=== PATIENT | female | born 1995 | race Caucasian/White ===

== ENCOUNTER 2021-11-15 09:41 | Outpatient (CLI) | payer OTHER, SELFPAY ==
[2021-11-16 20:11] LABS: Rapid Plasma Reagin (RPR) Non Reactive (Non Reactive)
== END 2021-11-15 09:42 | disposition home or self-care (01) ==
LOC: NFLDREF 09:42
PROVIDERS: Visit Provider Advanced Practice Midwife
DX: Z34.93 Encounter for supervision of normal pregnancy, unspecified, third trimester (principal); Z3A.28 28 weeks gestation of pregnancy
CPT/HCPCS: 86592

== ENCOUNTER 2021-12-14 12:08 | Outpatient (CLI) | payer OTHER, SELFPAY ==
--- NOTE | 2021-12-14 12:15 | CRLHL7_ITS ---
For Patients: As a result of the Century Cures Act, medical imaging exams and procedure reports are released immediately into your electronic medical record. You may view this report before your referring provider. If you have questions, please contact your health care provider. INDICATION: Third trimester scan, evaluate growth. Size less than dates COMPARISON: 09/20/2021 TECHNIQUE: Real time harrison scale imaging of the fetus was performed. FINDINGS: Sonographic imaging demonstrates a single living intrauterine gestation. Fetus demonstrates a regular cardiac rate of 145 beats per minute. Fetus has a vertex position. The placenta lies posteriorly. Amniotic fluid volume appears normal and there is a single deepest vertical pocket: 3.8 cm. The estimated weight is 2045gm which lies at the 60th %. On the prior OB ultrasound exam dated 09/20/2021 the estimated weight was at the 59th%. The HC/AC ratio measures 1.05 range (0.96-1.11). BPD 62nd percentile. HC 62nd percentile. AC 78th percentile. FL 23rd percentile. IMPRESSION: Sonographic gestational age 32 weeks 6 days and sonographic due date 02/02/2022. Good correlation with dates. Estimated weight 60th percentile. Abdominal circumference 78th percentile. Dictated by Eliezer Graf MD @ 12/14/2021 1:10:22 PM (Electronically Signed)
== END 2021-12-14 12:09 | disposition home or self-care (01) ==
LOC: US 12:09
PROVIDERS: Visit Provider Advanced Practice Midwife
DX: O36.5930 Maternal care for other known or suspected poor fetal growth, third trimester, not applicable or unspecified (principal); Z3A.32 32 weeks gestation of pregnancy
CPT/HCPCS: 76816

== ENCOUNTER 2022-01-10 09:12 | Outpatient (CLI) | payer OTHER, SELFPAY ==
[2022-01-11 08:44] LABS: Strep B DNA Probe Negative (Negative)
== END 2022-01-10 09:13 | disposition home or self-care (01) ==
LOC: NFLDREF 09:12
PROVIDERS: Visit Provider Advanced Practice Midwife
DX: Z34.93 Encounter for supervision of normal pregnancy, unspecified, third trimester (principal)
CPT/HCPCS: 87081; 87653

== ENCOUNTER 2022-02-13 16:04 | Inpatient (IN) | payer OTHER, SELFPAY ==
[2022-02-13 16:25] VITALS: BP 132/79; PULSE 102; RESP 18; TEMP 36.5
[2022-02-13 16:31] VITALS: BMI 33.3
--- NOTE | 2022-02-13 16:45 | P.LDBA_ITS ---
Subjective History of Present Illness Time Seen by Provider: 16:46 Date Seen: 02/13/22 Narrative: Juanita is being admitted to Labor and Delivery for IOL r/t postdates and anxiety about going past 41 weeks gestation. She is a 26 year old at 40 6/7 weeks gestation. Her full history and physical was dictated by Arelis Hallman CNM on 01/17/22. Please see this for details. She is an RN in L&D here. She is supported by her Yovani. Juanita would prefer an unmedicated labor and waterbirth if possible. Currently she is relaxed, resting comfortably in bed with Yovani supportive at bedside. OB Problem List: 1. Asthma as a child, last attack age 13 2. Hx of anorexia and bulimia. Counseling, done about 3 years ago. Blind weights if desired. Has counselor she can reach out to if needed. Consider growth u/s in 3rd trimester: 12/14/21: EFW 60%ile 3. Kidney stones. Had stent placed, has upcoming surgeries to remove stones Stent removed on September 30 OB - H&P: Exam Physical Exam: Vital signs: Pulse BP 102 H 132/79 02/13/22 16:25 02/13/22 16:25 Constitutional: Constitutional: no acute distress and average body habitus Routine HEENT Exam: Head: Present normocephalic Eye: Present normal appearance Routine Neck Exam: Neck: Present full ROM Routine Respiratory Exam: Respiratory: Present CTA bilaterally Routine Cardiovascular Exam: Cardiovascular: RRR Routine Abdominal Exam: Comments: Gravid Routine Exam: External: Present normal external exam Detailed Labor and Delivery Exam: Patient Gravid: yes Tachysystole: No Comments: No contractions Fetus (Single): Heart Rate Baseline: 135 Monitor Accelerations: Present Monitor Decelerations: None Long-Term Variability: Average (6-10) Routine Extremities Exam: Extremities: Present full ROM Routine Back/Spine/Pelvis Exam: Back/Spine: full ROM Routine Skin Exam: Present intact, dry and warm; Absent rash Routine Neurological Exam: Present alert and oriented X3 Detailed Neurological Exam: Coma Scale: Eye Opening: Spontaneous (4) Verbal Response: Orientated (5) Routine Psychiatric Exam: Present normal affect, normal thought process, cooperative, good insight and good judgment OB - Problem Based A/P Additional Plan (1) Supervision of normal first : Status: Acute (2) History of eating disorder: Status: Acute Plan ASSESSMENT:? 26 at 40 6/7 weeks gestation? Labor type: IOL, Not in labor? Category 1 FHR pattern.?? GBS positive? PLAN:? 1. Routine intrapartum cares as ordered. Continue with expectant management? 2. Monitoring per cytotec protocol 3. Planning unmedicated . Desires water . Consent signed. Hep C negative. Candidate for analgesia of choice.?? 4. Patient encouraged to reposition and ambulate to promote physiologic labor and .? 6. Anticipate ? ?
[2022-02-13] MEDS: miSOPROStoL 25 MCG/0.25 TABLET VAGINAL ×3 (17:18→23:13)
[2022-02-13 17:49] LABS: SARS PCR* Negative SARS-CoV-2 (Negative)
[2022-02-13 19:11] VITALS: BP 120/69; PULSE 68
--- NOTE | 2022-02-13 21:24 | W.PM.LDBA ---
Subjective History of Present Illness Time Seen by Provider: 21:25 Date Seen: 02/13/22 Narrative: Patient is being admitted to Labor and Delivery for IOL for dates. She is a 26 year old at 40.6 weeks gestation. Her full history and physical was dictated by Arelis Hallman on 01/17/22. Please see this for details. Her partner is at bedside for support. H & P done 01/17 by Arelis Hallman 1. Asthma as a child, last attack age 13 2. Hx of anorexia and bulimia. Counseling, done about 3 years ago. Blind weights if desired. Has counselor she can reach out to if needed. Consider growth u/s in 3rd trimester: 12/14/21: EFW 60%ile 3. Kidney stones. Had stent placed, has upcoming surgeries to remove stones Stent removed on September 30 OB - H&P: Exam Physical Exam: Vital signs: Temp Pulse Resp BP 97.7 F 68 18 120/69 02/13/22 16:25 02/13/22 19:11 02/13/22 16:25 02/13/22 19:11 Constitutional: Constitutional: no acute distress and cooperative Routine HEENT Exam: Head: Present normocephalic Routine Neck Exam: Neck: Present full ROM Routine Respiratory Exam: Respiratory: Present CTA bilaterally Routine Cardiovascular Exam: Cardiovascular: RRR Routine Abdominal Exam: Abdominal: Present soft; Absent tenderness Comments: Gravid Detailed Labor and Delivery Exam: Patient Gravid: yes Dilation (cm): 1 (per RN) Effacement (%): 60 (per RN 1/60/-2) Contraction frequency (min): 2 (none on admit, now Q 1-2 mins) Tachysystole: No Contraction intensity: Mild Fetus (Single): Heart Rate Baseline: 150 Monitor Accelerations: Present Monitor Decelerations: None Assisted Variability: Average (6-10) (Moderate) Routine Extremities Exam: Extremities: Present full ROM; Absent pedal edema Routine Back/Spine/Pelvis Exam: Back/Spine: full ROM Routine Skin Exam: Present intact, dry and warm Routine Neurological Exam: Present alert and oriented X3 Routine Psychiatric Exam: Present normal affect and normal thought process OB - Problem Based A/P Additional Plan (1) Supervision of normal first : Status: Acute (2) History of eating disorder: Status: Acute Plan at 40.6 weeks GBS negative IOL for dates complicated by kidney stones, resolved Admit to L & D Decision made to proceed with cytotec IOL. Pt candidate for analgesia of choice. Planning unmedicated Desires waterbirth. Hep C negative, consent signed. Intermittent or continuous monitoring per cytotec protocol at this time. Anticipate progress to NVD. Delivery/Labor/Induction Plan Plan: induction Induction method: per misoprostol protocol
[2022-02-13 23:46] VITALS: BP 123/65; PULSE 53; RESP 15; TEMP 36.7
[2022-02-14] VITALS (19 sets, daily range): BP systolic 100–140; BP diastolic 60–88; PULSE 55–100; RESP 15–20; TEMP 36.4–37.1
[2022-02-14] MEDS: miSOPROStoL 25 MCG/0.25 TABLET VAGINAL (05:14)
--- NOTE | 2022-02-14 10:55 | PM.OBPNL ---
Subjective Date Seen: 02/14/22 Objective Exam: She is now starting to feel a little more uncomfortable with contractions. Frequent position changes including walking, birthing ball, squatting, labor circuit, hands and knees, and hydrotherapy for relaxation. Received 4 doses of Cytotec overnight and is now tessa too frequently to receive a dose at this time. She is making slight change and has a bulging bag of water on exam. Will continue to labor and monitor. Consider another dose of Cytotec if contraction frequency decreases. Vital Signs: Last Vital Signs Temp 97.8 F 02/14/22 09:17 Pulse 64 02/14/22 10:55 Resp 16 02/14/22 07:18 BP 127/75 02/14/22 10:55 Pelvic Exam Dilation (cm): 2-3 Effacement (%): 80 Station: -1 Contractions Monitor mode: External Contraction Frequency: 1-3 Contraction pattern: Regular Contraction intensity: Moderate Assessment Assessment: induction ongoing and early labor Station: -1 Status: Category l Heart Rate Baseline: 130 Alf Variability: Moderate (6-25) Monitor Accelerations: Present Monitor Decelerations: None Plan Plan: 1. Expectant management at this time. 2. Anticipate . 3. Consider additional Cytotec if contraction frequency decreases. 4. Intermittent monitoring or Doppel tones per unit policy.
[2022-02-14] MEDS: MORPHINE 10 MG/ML inj IM (13:45)
[2022-02-14] MEDS: hydrOXYzine pamoate 25 MG CAPSULE 100 MG PO (13:45)
--- NOTE | 2022-02-14 17:02 | P.OBPN_ITS ---
Subjective Date Seen: 02/14/22 Narrative: She took morphine and Vistaril this afternoon and was able to take a 1.5 hour nap. She is feeling more rested. She is feeling stressed by outside family pressure and is tearful because of that. She doesn't feel contractions as intense. They are not every 2-4 minutes apart and she feels they are down to a 1-2/10 from a 3-4/10. She has made cervical change is as now 3-4/80%/-1 with a bulging bag of water. The risks and benefits of expectant mangement, cytotec, and expectant management were reviewed. She choose AROM. AROM was performed with brown, old blood tinged clear fluid. Baby tolerated the procedure well. Objective Vital Signs: Last Vital Signs Temp 98.1 F 02/14/22 17:02 Pulse 60 02/14/22 17:02 Resp 16 02/14/22 17:02 BP 136/76 02/14/22 17:02 Pelvic Exam Dilation (cm): 3-4 Effacement (%): 80-90 Station: -1 Contractions Monitor mode: External Contraction Frequency: 2-4 Contraction pattern: Regular Contraction intensity: Moderate Assessment Assessment: induction ongoing and early labor Station: -1 Amniotic Membrane Status: AROM Status: Category l Heart Rate Baseline: 125 Residential Variability: Moderate (6-25) Monitor Accelerations: Present Monitor Decelerations: None Plan Plan: 1. AROM 2. Anticipate 3. Encourage position changes throughout labor.
[2022-02-14] MEDS: LIDOCAINE 1% MDV 20 ML INJECTION (21:50)
--- NOTE | 2022-02-14 22:30 | P.OBPRC_ITS ---
Procedure Delivery date: 02/14/22 Procedure Done: Global Procedure Details: Patient is a 26 year-old G1 now P1 admitted on 02/13/22 at 40 Weeks, 6 Days gestation for IOL for post dates.? Cervical exam on admission was 1 cm/60 % effaced/-2 station with membranes intact in vertex presentation.? Contractions were absent.? heart rate demonstrated baseline 150 bpm with moderate variability, + accelerations, - decelerations; a category 1 tracing.? AROM occurred at 1655 with clear fluid.?She received 4 doses of cytotec vaginally. She was not able to receive additional doses due to frequent contractions. She continued to contract on her own. She progressed rapidly after 5 cm. At 5cm I was called in and she got into the tub. Shortly after getting into the tub she was 8cm and I arrived shortly after that. She delivered in the tub with her and a certified income tax preparer present. In the final pushes baby was delivered to the nose before the contraction was gone. She waited for the next contraction to finish delivering the head and the shoulders. She reached down and brought her b nadia to her chest after the shoulders were delivered. Baby was stimulated and cried spontaneously. She had a moderate gush of blood after the cord was cut and before she delivered the placenta. She was moved out of the tub and into the bad at that time. ?? Labor Analgesia:? None? ?? Pitocin:? No? ?? Labor onset:? 1829? ?? Complete:? 2042? ?? Pushing:? 2043? ?? heart tones during second stage were obtained by doppler and 110-120. No audible decelerations heard.? ?? At 2146 a viable female infant delivered in vertex ROSA presentation over intact perineum via spontaneous vaginal delivery.? Infant was placed on maternal abdomen.? Cord was clamped and cut after a greater than 5 minute delay.? Nose and mouth were bulb suctioned.? weight pending.? 7 at 1 minute and 9 at 5 minutes.? Shoulder dystocia: no.? Nuchal cord: no.? ?? Placenta delivered spontaneously and complete at 2203 with a 3 vessel cord.?There was a marginal cord and velamentous cord insertion on one side or the cord insertion site. ?? Mother and were stable after delivery.? ?? Lacerations:? 2nd degree, repaired with 3.0 Vicryl.? ?? Blood loss: 450 mL.? Blood loss measurement type: 350 QBL, 100 EBL in the tub? Sponge and needles counts are correct.? Events: Labor Induction Intrapartal Events: Labor Induction Induction method: per misoprostol protocol Delivery augmentation: rupture of membranes Delivery monitor: external FHT and external uterine Route of delivery: Episiotomy description: None Laceration description: Perineal - 2nd Degree Delivery repair: Vicryl Estimated blood loss (mL): 450 Anesthesia type: None Disposition: floor Infant Infant Gender: Female presentation: vertex Placental Delivery Description: Spontaneous Cord Description: 3 Vessels OB Vag Delivery Procedures Additional Procedures NST: Yes Laceration Repair: Yes
[2022-02-14] MEDS: IBUPROFEN 600 MG TABLET PO (23:00)
[2022-02-15] VITALS (8 sets, daily range): BP systolic 93–124; BP diastolic 58–73; PULSE 75–98; RESP 14–16; TEMP 36.4–36.6; O2SAT 95–97
[2022-02-15] MEDS: ACETAMINOPHEN 500 MG TABLET 1000 MG PO ×2 (01:57→19:47)
[2022-02-15] MEDS: LANOLIN CREAM 1 APPLIC TOPICAL (07:40)
[2022-02-15] MEDS: IBUPROFEN 600 MG TABLET PO ×3 (07:41→19:46)
[2022-02-15] MEDS: DOCUSATE SODIUM 100 MG CAPSULE PO ×2 (07:41→19:46)
--- NOTE | 2022-02-15 10:47 | P.OBPN_ITS ---
OB - PN:Subj Subjective Time Seen by Provider: 10:48 Date Seen: 02/15/22 Interval history: Patient is a 26year old, G 1 now P 1? admitted on 02/13/22 at 40 Weeks, 6 Days gestation for IOL.? She had an uncomplicated vaginal delivery.? She delivered a viable female infant.? She is breast feeding and reports things are well.? the patient has done well.? Vitals have been stable.? She has remained afebrile.? She is voiding without difficulty.? She is passing gas and has not had a bowel movement.? She is ambulating and denies any dizziness since passing out last night after delivery.? ? Patient comments OB post-: no complaints and pain well controlled [place] status: and doing well [place] feeding status: exclusively OB - PN: Obj Exam Physical Exam: Vital signs: Temp Pulse Resp BP Pulse Ox O2 Del Method 97.7 F 78 14 114/73 97 02/15/22 07:47 02/15/22 07:47 02/15/22 07:47 02/15/22 07:47 02/15/22 07:47 02/15/22 07:47 Constitutional: Constitutional: no acute distress and cooperative Routine HEENT Exam: Head: Present normocephalic Routine Neck Exam: Neck: Present full ROM Routine Respiratory Exam: Respiratory: Present CTA bilaterally Routine Cardiovascular Exam: Cardiovascular: Present RRR Routine Abdominal Exam: Abdominal: Present normal bowel sounds Detailed Abdominal Exam: Comments: FF @ U Routine Exam: External: Present normal external exam; Absent ecchymosis or vulvar erythema Perineum Description: Edematous (No bruising and soft to the touch. Will continue to monitor for hematoma) Comments: Lochia WNL. Routine Extremities Exam: Extremities: Present full ROM Routine Back/Spine/Pelvis Exam: Back/Spine: Present full ROM Routine Skin Exam: Skin: Present dry, intact and warm Routine Neurological Exam: Neurological: Present oriented X3 Routine Psychiatric Exam: Psychiatric: Present normal affect and normal thought process OB - PN: A/P Vaginal Delivery Assessment and Plan (1) Supervision of normal first : Status: Acute (2) History of eating disorder: Status: Acute Plan day: 1 Plan: routine care Comments: Continue with routine PP care. - may see if desired Anticipate discharge home tomorrow.
[2022-02-16 05:57] VITALS: BP 109/68; PULSE 79; RESP 16; TEMP 36.6
[2022-02-16] MEDS: ACETAMINOPHEN 500 MG TABLET 1000 MG PO (07:39)
[2022-02-16] MEDS: IBUPROFEN 600 MG TABLET PO (07:39)
[2022-02-16 07:48] VITALS: BP 103/66; PULSE 80; RESP 18; TEMP 36.6
--- NOTE | 2022-02-16 08:42 | P.DS_ITS ---
DS: Providers Provider Date Seen: 02/16/22 Date of admission: 02/13/22 16:04 Primary care physician: Not a Local Provider Admitting Clinician: Doreen Lopez CNM Attending Physician on discharge: Zee Phelan CNM DS: Diagnosis Discharge Diagnosis (1) care and examination immediately after delivery: Status: Acute (2) History of eating disorder: Status: Acute (3) (normal spontaneous vaginal delivery): Status: Acute (4) Lactating mother: Status: Acute Exam Const: Vital Signs, click to edit/add: Vital Signs - 24 hr 02/15/22 11:07 02/15/22 17:10 02/15/22 19:33 Temperature 97.6 F 97.6 F 97.7 F Pulse Rate [Pulse Oximeter] 78 75 75 Respiratory Rate 16 16 16 Blood Pressure [Le ft Arm] 93/58 L 102/67 104/71 Pulse Oximetry 97 96 96 Oxygen Delivery Me thod Room Air Room Air Room Air 02/16/22 05:57 02/16/22 07:48 Temperature 97.9 F 97.8 F Pulse Rate [Pulse Oximeter] 79 80 Respiratory Rate 16 18 Blood Pressure [Le ft Arm] 109/68 103/66 Pulse Oximetry Oxygen Delivery Me thod Room Air Room Air Documenting provider has reviewed patient's vital signs: yes Common normals: no apparent distress, oriented x3, healthy appearing and alert HENMT: Common normals: normocephalic Head and scalp: normocephalic Eye: Common normals: PERRL Pupil: PERRL Neck & C-Spine: Common normals: full ROM and supple Chest: Common normals: inspection of chest normal Resp: Common normals: normal respiratory effort and clear to auscultation bilaterally Auscultation: clear to auscultation bilaterally Cardio: Common normals: regular rate and regular rhythm Rate: regular rate Rhythm: regular rhythm GI: Common normals: soft to palpation Palpation: soft : OB/external & speculum: Yes perineal/vaginal laceration (well approximated) Laceration: 2nd Uterus: U/U Lochia: scant Back & Pelvis: Common normals: thoracic and lumbar spine normal to inspection Extremity: Common normals: normal to inspection and full ROM Neuro: Common normals: oriented x3 Sensorium/orientation: alert Speech: speech normal Psych: Common normals: mental status grossly normal, thought process normal, s peech normal and activity/motor behavior normal Speech: normal speech Thought process: normal thought process Skin: Common normals: no rashes or lesions noted General skin exam: no rashes or lesions noted OB - DS: Summary Hospital Course Hospital Course: The patient is a 26 year old G 1 P 1 at 41 0/7 weeks gestation that was admitted to the [facility] on 02/13/22 for IOL for post-dates. She had an uncomplicated vaginal delivery. She delivered a viable female infant. She is breast feeding and reports it is going well. the patient has done well. She is void ing, passing flatus, and ambulating independently. Peripartum Data Infant delivery method: Vaginal Laceration description: Perineal - 2nd Degree complications: none Infant Gender: Female Infant Discharge Plan: Home Status at Discharge Functional status at discharge: independent ambulation Overall status at discharge: patient is progressing back to baseline Time Spent with Patient Time attestation: Total time spent providing and/or coordinating discharge services: Time spent: Less than 30 minutes Discharge Plan Discharge Disposition: Home, Self-Care Date of Admission: 02/13/22 16:04 Primary Care Provider: Provider,Not a Local Condition: Stable Anticipated Discharge Date/Time: 02/16/22 08:46 Discharge Medications: New docusate sodium 100 mg Capsule 100 mg PO BID Qty: 90 0RF ibuprofen 600 mg Tablet 600 mg PO Q6H PRNQty: 60 0RF acetaminophen 500 mg Tablet 1,000 mg PO Q6H PRNQty: 0 0RF Continued prenat.vits,vanessa,[id number] Tablet 1 tab PO QDAY Discharge Orders: Discharge Order (Routine); Ordered 02/16/22 Ordered By: Zee Phelan Patient Education: OB Over the Counter Medication Information, OB Vaginal/Breast Feeding Additional Instructions: Discharge instructions were reviewed with the patient including signs and symptoms of infection and home going medications Nothing vaginally for 6 weeks: no tampons or intercourse Off Work or School for 6 weeks 2-week visit: discuss infant feeding concerns, review control options and screen for anxiety/depression. 6-week visit for an annual exam. consultation services are available to all mothers and babies for the first year after delivery.? To make an appointment, please call [phone]. Activity Level: Activity as Tolerated Discharge Diet: Regular Follow Up Appointments: [facility] [Provider Group] Forms: MyHealth Info Instructions
[2022-02-16] MEDS: DOCUSATE SODIUM 100 MG CAPSULE PO (08:43)
== END 2022-02-16 11:10 | disposition home or self-care (01) | DRG 807 ==
PROVIDERS: Admitting Provider Advanced Practice Midwife; Visit Provider Advanced Practice Midwife
DX: O48.0 Post-term pregnancy (principal); Z37.0 Single live birth; O99.824 Streptococcus B carrier state complicating childbirth; O70.1 Second degree perineal laceration during delivery; Z87.442 Personal history of urinary calculi; Z86.59 Personal history of other mental and behavioral disorders; Z3A.41 41 weeks gestation of pregnancy
CPT/HCPCS: 59200; 87635; A9270; J2270

== ENCOUNTER 2022-03-15 10:30 | Outpatient (CLI) | payer OTHER, SELFPAY | END 2022-03-15 10:31 | disposition home or self-care (01) | LOC: NFLDREF 10:40 | PROVIDERS: Visit Provider Advanced Practice Midwife | DX: R30.9 Painful micturition, unspecified (principal) | CPT/HCPCS: 87086 ==

== ENCOUNTER 2022-11-27 13:56 | Outpatient (CLI) | payer BC, SELFPAY ==
--- NOTE | 2022-11-27 14:00 | CRLHL7_ITS ---
For Patients: As a result of the Century Cures Act, medical imaging exams and procedure reports are released immediately into your electronic medical record. You may view this report before your referring provider. If you have questions, please contact your health care provider. INDICATION: First trimester scan, establish dates. COMPARISON: None. TECHNIQUE: Real-time harrison-scale imaging of the pelvis was performed. FINDINGS: Sonographic imaging demonstrates a single living intrauterine gestation. The embryo demonstrates a regular cardiac rate measuring 159 beats per minute. The embryo`s crown-rump length measurement of 1.5 cm corresponds to a gestational age of 7 weeks 6 days with a sonographic due date of 07/10/2023. There is a normal-appearing yolk sac. There are no gross abnormalities noted within the embryo at this early state of development. The gestational sac has a normal appearance. There is no evidence of a perigestational hemorrhage. The amount of fluid within the sac appears appropriate for gestational age. The cervix is closed. The myometrium appears normal. The ovaries are of normal size. Corpus luteal cyst right ovary. There are no suspicious fluid collections noted in the cul-de-sac. IMPRESSION: Normal first trimester OB ultrasound exam. Gestational age calculated at 7 weeks 6 days with a sonographic due date of 07/10/2023. Dictated by Eliezer Graf MD @ 11/27/2022 3:01:36 PM (Electronically Signed)
== END 2022-11-27 13:57 | disposition home or self-care (01) ==
LOC: US 13:57
PROVIDERS: Visit Provider Advanced Practice Midwife
DX: Z34.91 Encounter for supervision of normal pregnancy, unspecified, first trimester (principal); Z3A.01 Less than 8 weeks gestation of pregnancy
CPT/HCPCS: 76817

== ENCOUNTER 2022-12-29 10:39 | Outpatient (CLI) | payer BC, SELFPAY | END 2022-12-29 10:40 | disposition home or self-care (01) | LOC: NFLDREF 14:52 | PROVIDERS: Visit Provider Advanced Practice Midwife | DX: Z34.91 Encounter for supervision of normal pregnancy, unspecified, first trimester (principal); Z3A.12 12 weeks gestation of pregnancy | CPT/HCPCS: 86592; 86703; 86762; 86787; 86803; 86850; 86900; 86901; 87086; 87340 ==

== ENCOUNTER 2023-02-21 12:55 | Outpatient (CLI) | payer BC, SELFPAY ==
--- NOTE | 2023-02-21 13:00 | CRLHL7_ITS ---
For Patients: As a result of the Century Cures Act, medical imaging exams and procedure reports are released immediately into your electronic medical record. You may view this report before your referring provider. If you have questions, please contact your health care provider. INDICATION: Evaluate anatomy. COMPARISON: 11/27/2022 TECHNIQUE: Real time harrison scale imaging of the fetus was performed as well as color Doppler analysis of the umbilical vessels. FINDINGS: Sonographic imaging demonstrates a single living intrauterine gestation. Fetus demonstrates a regular cardiac rate of 152 beats per minute. Fetus has a breech position. The placenta lies anteriorly without evidence of placenta previa. Edge of the placenta located 3.4 cm from the internal cervical os. Amniotic fluid volume appears normal. Single deepest vertical pocket: 4.1 cm. The cervix is closed and measures 4.1 cm in length. The composite ultrasound gestational age is calculated at 19 weeks 4 days with an estimated sonographic due date of 07/14/2023. The estimated weight is 320 grams which lies at the 32nd %. The following biometric measurements were obtained: Biparietal diameter: 4.2 cm/18 weeks 5 days 6th% Head circumference: 16.9 cm/19 weeks 4 days 18th% Abdominal circumference: 14.9 cm/20 weeks 1 day 44th% Femur length: 3.2 cm/19 weeks 6 days 31st% The HC/AC ratio measures: 1.14 range (1.08-1.26) On anatomic survey, there is a normal appearance of the cavum septi pellucidi, cisterna magna and cerebellum. The nose, lips, and facial profile appear normal. The cervical, thoracic and lumbar spine are well visualized and appear normal. There is a normal four-chamber heart view and the left and right ventricular outflow tracts appear normal. The diaphragm and stomach appear normal. The kidneys and bladder also appear normal. There is a normal three-vessel cord and cord insertion site. The four extremities appear normal. IMPRESSION: Concordance of clinical and sonographic dating. On the cine clips, there is suggestion of a mild fluid filled structure in the midline adjacent to the cavum septum pellucidum which could represent cavum septum pellucidum et vergae or potentially a cerebral ventricular dilation. Remainder of the anatomic survey is normal. A level 2 ultrasound is recommended. Dictated by Eliezer Graf MD @ 02/23/2023 8:42:02 AM (Electronically Signed)
== END 2023-02-21 12:56 | disposition home or self-care (01) ==
LOC: US 12:55
PROVIDERS: Visit Provider Advanced Practice Midwife
DX: Z34.92 Encounter for supervision of normal pregnancy, unspecified, second trimester (principal); Z3A.19 19 weeks gestation of pregnancy
CPT/HCPCS: 76805

== ENCOUNTER 2023-04-17 08:08 | Outpatient (CLI) | payer BC, SELFPAY | END 2023-04-17 08:09 | disposition home or self-care (01) | LOC: NFLDREF 04-19 12:44 | PROVIDERS: Visit Provider Physician Assistant | DX: Z34.93 Encounter for supervision of normal pregnancy, unspecified, third trimester (principal); Z3A.28 28 weeks gestation of pregnancy | CPT/HCPCS: 86592 ==

== ENCOUNTER 2023-05-16 08:09 | Outpatient (CLI) | payer OTHER, SELFPAY ==
--- NOTE | 2023-05-16 08:15 | CRLHL7_ITS ---
For Patients: As a result of the Century Cures Act, medical imaging exams and procedure reports are released immediately into your electronic medical record. You may view this report before your referring provider. If you have questions, please contact your health care provider. INDICATION: Check growth TECHNIQUE: Limited transabdominal two-dimensional harrison-scale ultrasound examination. COMPARISON: 02/21/2023 and 11/27/2022 FINDINGS: There is a living fetus in vertex lie with gestational age of 32 weeks 1 day by 1st trimester ultrasound dating and 31 weeks 4 days by today`s measurements. EDC based on 1st trimester ultrasound dating is 07/10/2023 BPD: 7.8 cm, 31 weeks 1 day Head circumference: 28.8 cm, 31 weeks 5 days Abdominal circumference: 27.7 cm, 31 weeks 5 days Femur length: 6.1 cm, 31 weeks 4 days The weight is estimated at 1808 grams, the 24th percentile. The heart rate is measured at 135 beats per minute and the rhythm appears regular. The amniotic fluid volume is within normal limits with single deepest pocket of 4.5 cm. The placenta is anterior and superior to the cervical os. There is no evidence of previa. IMPRESSION: 1. Living fetus in vertex lie with gestational age of 32 weeks 1 day by 1st trimester ultrasound dating at 31 weeks 4 days by today`s measurements. EDC based on 1st trimester ultrasound dating is 07/10/2023. 2. weight estimated at 1808 grams, the 24th percentile. Dictated by Rob Lloyd MD @ 05/16/2023 9:53:17 AM (Electronically Signed)
== END 2023-05-16 08:10 | disposition home or self-care (01) ==
LOC: US 08:09
PROVIDERS: Visit Provider Advanced Practice Midwife
DX: Z34.83 Encounter for supervision of other normal pregnancy, third trimester (principal); Z3A.32 32 weeks gestation of pregnancy
CPT/HCPCS: 76816

== ENCOUNTER 2023-06-11 18:58 | Outpatient (CLI) | payer OTHER, SELFPAY ==
[2023-06-11 19:07] VITALS: BP 116/72; PULSE 103
[2023-06-11 19:08] VITALS: RESP 16; TEMP 36.6; O2SAT 97
--- NOTE | 2023-06-11 19:45 | PC.OBNST ---
NST Note NST Note Start: 06/11/23 19:02 Freq: ONCE Status: Active Protocol: Document 06/11/23 19:24 PAMELA (Rec: 06/11/23 19:25 PAMELA [id number]) NST Note 2 Para (# of births) 1 EDC 07/10/23 Gestational Age In Weeks & Days 35 Weeks & 6 Days Patient Presented with Complaint(s) of Decreased movement Reactive Yes Appropriate for Gestational Age Yes DENI Haynes, RNC Date 06/11/23 Reactive Yes Appropriate for Gestational Age Yes DENI Shen, RNC Date 06/11/23 OB NST charge Yes Complete NST Note via Write Note Yes The provider's electronic signature indicates the NST is reactive/appropriate for gestational age. *Note to provider: If an addendum is required, open the patient's chart and click on the note under the Nurse/Allied Health tab.
== END 2023-06-11 19:27 | disposition home or self-care (01) ==
LOC: OB OUT 18:59 → OB 18:59
PROVIDERS: Visit Provider Advanced Practice Midwife
DX: O36.8130 Decreased fetal movements, third trimester, not applicable or unspecified (principal); Z3A.35 35 weeks gestation of pregnancy
CPT/HCPCS: 59025; G0463

== ENCOUNTER 2023-06-13 15:36 | Outpatient (CLI) | payer OTHER, SELFPAY ==
[2023-06-14 14:15] LABS: Strep B DNA Probe Negative (Negative)
[2023-06-14 23:57] LABS: Strep B Susceptibility Needed? No
== END 2023-06-13 15:37 | disposition home or self-care (01) ==
LOC: NFLDREF 15:37
PROVIDERS: Visit Provider Advanced Practice Midwife
DX: Z34.93 Encounter for supervision of normal pregnancy, unspecified, third trimester (principal); Z3A.36 36 weeks gestation of pregnancy
CPT/HCPCS: 87081; 87653

== ENCOUNTER 2023-07-03 17:00 | Inpatient (IN) | payer OTHER, SELFPAY ==
[2023-07-03 17:13] VITALS: PULSE 92; O2SAT 96
[2023-07-03 17:22] VITALS: BP 106/70; PULSE 89
[2023-07-03 17:37] VITALS: BMI 34.3
[2023-07-03 17:59] VITALS: RESP 16; TEMP 36.6
[2023-07-03] MEDS: miSOPROStoL 25 MCG/0.25 TABLET VAGINAL ×2 (18:11→22:15)
--- NOTE | 2023-07-03 18:20 | PM.OBHPLI ---
OB - H&P: HPI Labor/Induction History of Present Illness Time Seen by Provider: 18:20 Chief Complaint: The patient is a 27 year old para at [] weeks gestation by [], who presents with []. [] Chief complaint: Maternity Narrative: Juanita May is a 27 year old female Specific Issues/Plans : Yovani Requesting a 39 week IOL. Scheduled for 07/03/23 at 1700. IOL consent signed. 1. Hx renal calculi in last with stent placement x2. Reports that there is a known stone still present and high likelihood of recurrence in . 2. Hx of anorexia and bulimia. Counseling, done about 4 years ago. Blind weights if desired. Has counselor she can reach out to if needed. 3. Hx asthma in childhood. 4. Questionable dilation posterior to CSP midline. Mild fluid filled structure in the midline adjacent to the cavum septum pellucidum which could represent cavum septum pellucidum et vergae or potentially a cerebral ventricular dilation MFM referral placed for Level II: normal per patient (records still pending as of 04/17/23, request for records made), suboptimal views on nasal bone and other structures and f/u US was recommended, patient declined f/u as these structures were seen locally on [facility] US Records received 04/17/2023: Intracranial anatomy was seen and normal. Nasal bone possibly absent. Limited views of spine, left kidney, LVOT, RVOT, aortic arch, f/u recommend; These were previously seen in [facility] 5. Eczema, triamcinolone cream 04/17/2023. Severely worsening, prednisone 6. Covid in around 29 wks growth at 32 wks, ordered: 24% recommended 81 mg ASA COVID: fully vaccinated, not boosted. Flu: 03/23/23 TDAP: declined 32wk Mental Health: 05/16/2023 Meds Home Medications and Allergies Home Medications Medication Instructions Recorded Confirmed Type docosahexaenoic acid 200 mg 1 mg PO QDAY 11/27/22 06/26/23 History capsule ( DHA) Allergies Allergy/AdvReac Type Severity Reaction Status Date / Time cat dander Allergy Verified 06/26/23 12:31 OB - H&P: Exam Physical Exam: Vital signs: Temp Pulse Resp BP Pulse Ox 98 F 89 16 106/70 96 07/03/23 17:59 07/03/23 17:22 07/03/23 17:59 07/03/23 17:22 07/03/23 17:13
--- NOTE | 2023-07-03 18:31 | P.LDBA_ITS ---
Documented by User: Danie Aparicio 07/03/23 18:50 Subjective History of Present Illness Narrative: The patient is a 27 year old 2 para 1 at 39 weeks gestation who presents for elective induction of labor. Her course is uncomplicated except for hx of Covid infection in , Asthma as a child, Eczema, Anorexia and bulimia. She denies LOF, vaginal bleeding and decreased movement. She plans on using Nitrous oxide for labor pain management. Her is at bed side for labor support. Pt is agreeable to initiating Induction with cytotec for cervical ripening after SVE. Specific Issues/Plans : Yovani Requesting a 39 week IOL. Scheduled for 07/03/23 at 1700. IOL consent signed. 1. Hx renal calculi in last with stent placement x2. Reports that th ere is a known stone still present and high likelihood of recurrence in . 2. Hx of anorexia and bulimia. Counseling, done about 4 years ago. Blind weights if desired. Has counselor she can reach out to if needed. 3. Hx asthma in childhood. 4. Questionable dilation posterior to CSP midline. Mild fluid filled structure in the midline adjacent to the cavum septum pellucidum which could represent cavum septum pellucidum et vergae or potentially a cerebral ventricular dilation MFM referral placed for Level II: normal per patient (records still pending as of 04/17/23, request for records made), suboptimal views on nasal bone and other structures and f/u US was recommended, patient declined f/u as these structures were seen locally on [facility] US Records received 04/17/2023: Intracranial anatomy was seen and normal. Nasal bone possibly absent. Limited views of spine, left kidney, LVOT, RVOT, aortic arch, f/u recommend; These were previously seen in [facility] 5. Eczema, triamcinolone cream 04/17/2023. Severely worsening, prednisone 6. Covid in around 29 wks growth at 32 wks, ordered: 24% recommended 81 mg ASA COVID: fully vaccinated, not boosted. Flu: 03/23/23 TDAP: declined 32wk Mental Health: 05/16/2023 OB - Problem Based A/P Additional Plan (1) Encounter for elective induction of labor: Status: Acute (2) 39 weeks gestation of : Status: Acute Plan ASSESSMENT:? 27 yr old at 39 weeks gestation? complicated by:?Covid infection in , Asthma as a child, Eczema, Anorexia & Bulimia Labor type: Elective induction Category 1 Labor complicated by: None ? GBS negative? ?RH: Positive PLAN:? 1. Induction started with Cytotec 25 mcg PV. Repeat dose per order. 2. Monitoring per policy, continuous or intermittent? 3. Planning Nitrous Oxide 4. Patient encouraged to reposition and ambulate to promote physiologic labor and .? 5. Anticipate ? Delivery/Labor/Induction Plan Plan: induction Induction method: per misoprostol protocol OB Result Labs Blood Type: B (+) positive Rubella: immune RPR/VDLR: nonreactive GBS Status: negative HBsAG: negative OB Exam Physical Exam Vital signs: Temp Pulse Resp BP Pulse Ox 98 F 89 16 106/70 96 07/03/23 17:59 07/03/23 17:22 07/03/23 17:59 07/03/23 17:22 07/03/23 17:13 Detailed Labor and Delivery Exam Patient Gravid: Yes (performed by Turner Phelan CNM ) Dilation (cm): 1 Effacement (%): 20 Cervix position: anterior Consistency: medium Contraction Frequency: none Fetus (Single) Station: -3 Amniotic Membrane Status: intact Heart Rate Baseline: 140 Monitor Accelerations: Present Monitor Decelerations: None Chairman & Ceo Variability: Moderate (6-25) Documented by User: Zee Phelan CNM 07/03/23 20:41 Subjective History of Present Illness Narrative: The patient is a 27 year old 2 para 1 at 39 weeks gestation who presents for elective induction of labor. Her course is uncomplicated except for hx of Covid infection in , Asthma as a child, Eczema, Anorexia and bulimia. She denies LOF, vaginal bleeding and decreased movement. She plans on using Nitrous oxide for labor pain management. Her is at bed side for labor support. Pt is agreeable to initiating Induction with cytotec for cervical ripening after SVE. Specific Issues/Plans : Yovani Requesting a 39 week IOL. Scheduled for 07/03/23 at 1700. IOL consent signed. 1. Hx renal calculi in last with stent placement x2. Reports that there is a known stone still present and high likelihood of recurrence in . 2. Hx of anorexia and bulimia. Counseling, done about 4 years ago. Blind weights if desired. Has counselor she can reach out to if needed. 3. Hx asthma in childhood. 4. Questionable dilation posterior to CSP midline. Mild fluid filled structure in the midline adjacent to the cavum septum pellucidum which could represent cavum septum pellucidum et vergae or potentially a cerebral ventricular dilation MFM referral placed for Level II: normal per patient (records still pending as of 04/17/23, request for records made), suboptimal views on nasal bone and other structures and f/u US was recommended, patient declined f/u as these structures were seen locally on [facility] Records received 04/17/2023: Intracranial anatomy was seen and normal. Nasal bone possibly absent. Limited views of spine, left kidney, LVOT, RVOT, aortic arch, f/u recommend; These were previously seen in [facility] 5. Eczema, triamcinolone cream 04/17/2023. Severely worsening, prednisone 6. Covid in around 29 wks growth at 32 wks, ordered: 24% recommended 81 mg ASA COVID: fully vaccinated, not boosted. Flu: 03/23/23 TDAP: declined 32wk Mental Health: 05/16/2023 OB - Problem Based A/P Additional Plan (1) Encounter for elective induction of labor: Status: Acute (2) 39 weeks gestation of : Status: Acute Plan ASSESSMENT:? 27 yr old at 39 weeks gestation? complicated by:?Covid infection in , Asthma as a child, Eczema, Anorexia & Bulimia Labor type: Elective induction Category 1 Labor complicated by: None ? GBS negative? RH: Positive PLAN:? 1. Induction started with Cytotec 25 mcg PV. Repeat dose per order. 2. Monitoring per policy, continuous with induction agent. Can consider intermittent if post cytotec medication for >4 hours. 3. Planning Nitrous Oxide and desires waterbirth. Consent signed, hep C negat fifi. 4. Patient encouraged to reposition and ambulate to promote physiologic labor and .? 5. Anticipate ? I,?Zee Phelan APRN, MEKHI, was present for visit and have reviewed and agree with documentation by the Certified Nurse Midwifery Student. OB Exam Physical Exam Narrative: Vitals Reviewed Constitutional:? Alert and oriented x3 HEENT:? Normocephalic, atraumatic Neck:? Supple Lungs:? Clear to auscultation bilaterally Heart:? Regular rate and rhythm, no murmur, rub or gallop Abdomen:? Soft, nontender, and gravid. Vertex by Harshal's, confirmed with cervical exam. Extremities:? No edema or erythema Detailed Labor and Delivery Exam Patient Gravid: Yes Dilation (cm): 1 (performed by Turner Phelan CNM )
[2023-07-03 22:11] VITALS: BP 112/59; PULSE 68; TEMP 36.7
[2023-07-04] VITALS (19 sets, daily range): BP systolic 92–121; BP diastolic 51–78; PULSE 71–101; RESP 16–18; TEMP 36.3–36.7; O2SAT 97–98
[2023-07-04] MEDS: miSOPROStoL 25 MCG/0.25 TABLET VAGINAL (02:16)
[2023-07-04] MEDS: hydrOXYzine pamoate 25 MG CAPSULE 100 MG PO (04:21)
[2023-07-04] MEDS: MORPHINE 10 MG/ML inj IM (04:23)
--- NOTE | 2023-07-04 04:26 | PM.OBPNL ---
Subjective Date Seen: 07/04/23 Narrative: Juanita is a 27 year old at 39.1 weeks gestation here for elective induction of labor. She is supported by her . She is coping well with labor with position changes and rest as able. Nurses request cervical exam as patient is requesting morphine/vistaril for rest. She reports feeling that the contractions are back to back but irregular in intensity. Objective Exam: Objective: Constitutional: Alert and oriented x3, moderate distress, coping well Vital signs stable, see nurse documentation Abdomen: gravid, contractions palpate moderate with contractions and soft between Cervix: 3 cm/70%/0 station/vertex NST: 125 bpm/moderate variability/15x15 accelerations/no decelerations/irregular contractions every 1-4 minutes varying in intensity Vital Signs: Last Vital Signs Temp 97.9 F 07/04/23 02:20 Pulse 76 07/04/23 02:20 Resp 16 07/03/23 17:59 BP 110/67 07/04/23 02:20 Pulse Ox 96 07/03/23 17:13 Contractions Monitor mode: External Assessment Assessment: early labor Station: 0 Status: Category l Heart Rate Baseline: 125 [facility] Variability: Moderate (6-25) Monitor Accelerations: Present Monitor Decelerations: None Plan Plan: 27 yr old at 39.1 weeks gestation? complicated by:?Covid infection in , Asthma as a child, Eczema, Anorexia & Bulimia Labor type: Elective induction, early labor Category 1 Labor complicated by: None ? GBS negative? RH: Positive PLAN:? 1. Induction started with Cytotec 25 mcg PV. 2. Monitoring per policy, continuous with induction agent. Can consider intermittent if post cytotec medication for >4 hours. 3. Planning Nitrous Oxide and desires waterbirth. Consent signed, hep C negative. 4. Patient encouraged to reposition and ambulate to promote physiologic labor and .? 5. Patient desires morphine and vistaril. Discussed risk/benefit based on current cervical exam and that this is her 2nd /labor. I did recommend considering risk of labor progressing faster due to this fact and risk to baby if that happens with morphine and vistaril. 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 She reports she understands risk and would like to proceed. Offered fentanyl as alternative, she declines. 6. Anticipate ?
--- NOTE | 2023-07-04 07:17 | W.PM.OBVAGDE ---
Documented by User: Zee Phelan CNM 07/05/23 09:24 OB Procedure Vag Delivery Mother Details Mother Details: The patient is a 27 year-old, 2, now Para 2, admitted on 07/03/23 at 39 0/7 weeks gestation. : 2 Para: 2 Weeks Gestation: 39.1 Admission Date: 07/03/23 Additional Details Amniotic Membrane Status: AROM Amniotic Membrane Rupture Date: 07/04/23 Amniotic Membrane Rupture Time: 00:52 Amniotic Membrane Fluid Description: Clear Analgesia/Anesthesia Type: Nitrous Oxide Waterbirth: Yes Intrapartal Events: Precipitous Labor <3 Hrs Labor Onset: 05:25 Complete: 06:52 Pushin:52 Heart: heart tones were intermittently auscultated. The second stage was precipitous and heart tones were not obtained during this time. Just prior to AROM, FHR was auscultated and was reassuring. Delivery Details Delivery Date: 07/04/23 Delivery Time: 06:55 Route of delivery: Gender: Female Viability: Alive; Heart Rate Present Position at Delivery: OA Delivery Details: Patient was admitted for elective induction of labor. She received 3 doses of Cytotec. At approximately 4 am she requested morphine and Vistaril. She then progressed quickly. AROM at 0652 with clear fluid where patient immediately felt urge to push, anterior lip was resolved. Patient was complete and pushing with AROM at 0652. of a viable female at 0655 in semi-reclined position in the tub. Vertex delivered OA. No nuchal cord or shoulder. Body delivered easily and without incident. Infant passed to mothers abdomen with a slow cry. Cord was clamped and cut at > 5 minutes. APGARS were 8 at one minute and 8 at five minutes respectively. Mouth was bulb suctioned. Patient remained in tub for some time after and was then assisted to the bed. MEKHI Lopez assumed care at this time. EBL in tub 100. Student CNM observed delivery. 1 Minute Interval Total Score: 8 5 Minute Interval Total Score: 9 Additional Details Shoulder Dystocia: No Placenta Delivery Time: 07:12 Placental Delivery Description: Spontaneous Delivery repair: Vicryl Procedure Done: Global Blood Loss Measurement Type: QBL (EBL in tub.) Bakri Used: No Sponge/Need Count Correct: Yes Cord Vessel Description: 3 Vessels Indication for instrumentation: nonreassuring FHR tracing Event Summary Status: Mother and were stable after delivery. Disposition: floor Documented by User: Doreen Lopez CNM 07/04/23 11:40 OB Procedure Vag Delivery Delivery Details Delivery Details: Patient was admitted for elective induction of labor. She received 3 doses of Cytotec. At approximately 4 am she requested morphine and Vistaril. Educated on risk and benefit at this stage in labor but choose to proceed. She then progressed quickly. AROM at 0652 with clear fluid where patient immediately felt urge to push, anterior lip was resolved. Patient was complete and pushing with AROM at 0652. of a viable female at 0655 in semi-reclined position in the tub. Vertex delivered OA. No nuchal cord or shoulder. Body delivered easily and without incident. passed to mothers abdomen with a slow cry. Cord was clamped and cut at > 5 minutes. APGARS were 8 at one minute and 8 at five minutes respectively. Mouth was bulb suctioned. Patient remained in tub for some time after and was then assisted to the bed. MEKHI Lopez assumed care at this time. EBL in tub 100. Student CNCarter observed delivery. Intact placenta with a 3 vessel cord delivered spontaneously at 0712. Fundus firm. 2nd degree laceration to the vagina and perineum was identified and repaired with 3-0 Vicryl, utilized topical and injection lidocaine. QBL 100 cc and 100 cc EBL = 200 cc. Mother and baby stable; mother plans to breastfeed. weight [id number]. All counts were correct at end of procedure. 5 Minute Interval Total Score: 8 Additional Details Blood Loss: 200 Laceration: Perineal - 2nd Degree Episiotomy Description: None Blood Loss Measurement Type: QBL (100EBL in tub. 100 QBL )
[2023-07-04] MEDS: lidocaine HCL 2 % JELLY (TOP) STERILE 6 ML TOPICAL (07:50)
[2023-07-04] MEDS: LIDOCAINE 1 % PF 30 ML INJECTION (07:50)
--- NOTE | 2023-07-04 07:50 | W.PM.VAGDE_ITS ---
Documented by User: Danie Aparicio 07/04/23 08:35 OB Procedure Vag Delivery Mother Details Mother Details: The patient is a 27 year-old, 2, Para 1, admitted on 07/03/23 at 39.1Days gestation. Additional Details Amniotic Membrane Status: AROM Amniotic Membrane Rupture Date: 07/04/23 Amniotic Membrane Rupture Time: 06:52 Amniotic Membrane Fluid Description: Clear Analgesia/Anesthesia Type: Nitrous Oxide Waterbirth: Yes Pitcoin: No Heart: heart tones during second stage was 120-130 by Doppler Delivery Details Delivery Date: 07/04/23 Delivery Time: 06:55 Gender: Female Infant Viability: Alive; Heart Rate Present Position at Delivery: OA Delivery Details: Patient is a who was admitted for elective induction of labor @ 39 wk. She received 3 doses of Cytotec per vagina. Progressed normally utilizing positioning changes. Pt requested morphine and Vistaril at 0423 knowing risk and benefit before going into the tub. She also utilized nitrous oxide while in the tub. AROM with clear fluid when patient was at lip-rim. Patient was complete and started spontaneously pushing at 0652. of a viable female at 0655 on her back in the tub. Had a waterbirth. Vertex delivered OA. No nuchal cord or should er. Body delivered easily and without incident. Infant passed to mothers abdomen with a vigorous cry. Cord was clamped and cut at > 5 minutes. APGARS were 8 at one minute and 8 at five minutes respectively. Mouth was bulb suctioned. Intact placenta with a 3 vessel cord delivered spontaneously at 0712. Fundus firm. 2nd degree laceration to the vagina and perineum was identified and repaired with 3- 0 Vicryl, utilized topical and injection lidocaine. QBL 100 cc and 100 cc EBL = 200 cc. Mother and baby stable; mother plans to breastfeed. weight [id number]. All counts were correct at end of procedure. Additional Details Shoulder Dystocia: No Placenta Delivery Time: 07:12 Placental Delivery Description: Spontaneous Procedure Done: Global Blood Loss: 200 Laceration: Vaginal - 2nd Degree (extended to perineum ) Blood Loss Measurement Type: EBL Bakri Used: No Sponge/Need Count Correct: Yes Cord Vessel Description: 3 Vessels Event Summary Status: Mother and infant were stable after delivery. Disposition: floor Documented by User: Doreen Lopez CNM 07/04/23 11:36 OB Procedure Vag Delivery Mother Details : 2 Para: 2 Weeks Gestation: 39.1 Admission Date: 07/03/23 Additional Details Intrapartal Events: None Delivery augmentation: rupture of membranes Complete: 06:52 Pushin:52 Delivery Details Route of delivery: Delivery Details: Patient is a who was admitted for elective induction of labor @ 39 wk. She received 3 doses of Cytotec per vagina. Progressed normally utilizing positioning changes. Pt requested morphine and Vistaril at 0423. Educated on risk and benefit at this stage in labor but choose to proceed.Shortly after she requested to get into the tub. She also utilized nitrous oxide while in the tub. AROM with clear fluid when patient was at lip-rim. Patient was complete and started spontaneously pushing at 0652. of a viable female at 0655 on her back in the tub. Had a waterbirth. Vertex delivered OA. No nuchal cord or shoulder. Body delivered easily and without incident. passed to mothers abdomen with a vigorous cry. Cord was clamped and cut at > 5 minutes. APGARS were 8 at one minute and 8 at five minutes respectively. Mouth was bulb suctioned. Intact placenta with a 3 vessel cord delivered spontaneously at 0712. Fundus firm. 2nd degree laceration to the vagina and perineum was identified and repaired with 3-0 Vicryl, utilized topical and injection lidocaine. QBL 100 cc and 100 cc EBL = 200 cc. Mother and baby stable; mother plans to breastfeed. weight [id number]. All counts were correct at end of procedure. 1 Minute Interval Total Score: 8 5 Minute Interval Total Score: 8 Additional Details Delivery repair: Vicryl Episiotomy Description: None Blood Loss Measurement Type: QBL (100mL QLB in the drape, 100ml EBL in the tub.)
[2023-07-04] MEDS: ACETAMINOPHEN 500 MG TABLET 1000 MG PO ×3 (08:20→23:13)
[2023-07-04] MEDS: DOCUSATE SODIUM 100 MG CAPSULE PO ×2 (12:31→20:27)
[2023-07-04] MEDS: polyethylene glycoL 3350 17 GM PACK PO (12:32)
[2023-07-04] MEDS: IBUPROFEN 600 MG TABLET PO ×2 (14:29→20:27)
[2023-07-04] MEDS: hydrOXYzine pamoate 25 MG CAPSULE 50 MG PO (20:44)
[2023-07-05] MEDS: IBUPROFEN 600 MG TABLET PO (07:16)
[2023-07-05 09:45] VITALS: BP 96/63; PULSE 80; RESP 16; TEMP 36.6
--- NOTE | 2023-07-05 10:05 | P.OBPN_ITS ---
OB - PN:Subj Subjective Date Seen: 07/05/23 Patient comments OB post-: no complaints [place] status: and doing well feeding status: exclusively Narrative: Juanita is a 27 y.o. who was admitted to [facility] for induction of labor.? She had an uncomplicated NVD.? ?? The patient feels well.? The pain is well controlled with current medications.? She has no new complaints.? She is breast feeding and reports things are going well.? the patient has done well.? Vitals have been stable.? She has remained afebrile.? Has a good appetite, is tolerating a general diet.? She is voiding without difficulty.? She is passing gas and has not had a bowel movement.? She is ambulating and denies any dizziness.? Has Small amount of rubra lochia. She complains of increased discomfort in her tailbone area with sitting. ? OB - PN: Obj Exam Physical Exam: Vital signs: Temp Pulse Resp BP Pulse Ox O2 Del Method 97.9 F 80 16 96/63 98 Room Air 07/05/23 09:45 07/05/23 09:45 07/05/23 09:45 07/05/23 09:45 07/04/23 23:10 07/05/23 09:45 Narrative: GENERAL APPEARANCE:? normal affect, alert, no distress? MOOD:? appropriate? HEENT: normocephalic, neck supple, full ROM? CHEST:? Symmetrical chest wall movement.? Normal respiratory effort.? Clear to auscultation ? HEART:? regular rate and rhythm? ABDOMEN:? soft, non-tender. Uterine fundus is firm, 2 below Umbilicus, Midline and is appropriate for the stage of recovery.? Bowel sounds present.? PERINEUM:? mild edema of the perineum, there is a 2nd degree laceration that is healing well. No additional swelling or hemorrhoids noted on exam. ? EXTREMITIES:? normal and no edema? OB - PN: A/P Delivery Assessment and Plan (1) Lactating mother: Status: Resolved (2) care and examination immediately after delivery: Status: Resolved Plan day: 1 Plan: routine care Comments: G 2 P 2 status post uncomplicated NVD??? 1.? Continue route PP cares? 2.? .? May see if desired? 3.? Anticipate discharge home tomorrow?
[2023-07-05] MEDS: ACETAMINOPHEN 500 MG TABLET 1000 MG PO ×2 (12:21→23:59)
[2023-07-05] MEDS: DOCUSATE SODIUM 100 MG CAPSULE PO (12:21)
[2023-07-05] MEDS: polyethylene glycoL 3350 17 GM PACK PO (12:21)
[2023-07-05 15:50] VITALS: BP 106/72; PULSE 86; RESP 16; TEMP 36.7
[2023-07-06 00:04] VITALS: BP 103/67; PULSE 67; RESP 16; TEMP 36.6
[2023-07-06 08:15] VITALS: BP 103/71; PULSE 95; RESP 16; TEMP 36.6; O2SAT 97
--- NOTE | 2023-07-06 08:18 | P.DS_ITS ---
DS: Providers Provider Date Seen: 07/06/23 Date of admission: 07/03/23 17:00 Primary care physician: Not a Local Provider Admitting Clinician: Zee Phelan CNM Attending Physician on discharge: Zee Phelan APRN, CNM DS: Diagnosis Discharge Diagnosis (1) care and examination immediately after delivery: Status: Resolved (2) Lactating mother: Status: Acute (3) Constipation: Status: Acute Exam Narrative: Exam Narrative: GENERAL APPEARANCE:? normal affect, alert, no distress MOOD:? appropriate CHEST:? clear to auscultation HEART:? regular rate and rhythm ABDOMEN:? soft, non-tender the uterine fundus is At Umbilicus, Midline and is appropriate for the stage of recovery. PERINEUM:? mild edema of the perineum, there is a Perineal Laceration,?2nd degree, that is healing well. EXTREMITIES:? normal and no edema Const: Vital Signs, click to edit/add: Vital Signs - 24 hr 07/05/23 09:45 07/05/23 15:50 07/06/23 00:04 Temperature 97.9 F 98.1 F 97.9 F Pulse Rate [Pulse Oximeter] 80 86 67 Respiratory Rate 16 16 16 Blood Pressure [Ri ght Arm] 96/63 106/72 103/67 Oxygen Delivery Me thod Room Air Room Air Room Air Documenting provider has reviewed patient's vital signs: yes OB - DS: Summary Hospital Course Hospital Course: Juanita is a 27 y.o. G 2 P 2 who was admitted to [facility] for elective induction of labor. ?She had a NVD that was uncomplicated. The patient feels well. ?The pain is well controlled with current medications. ?She has no new complaints. ?She is breast feeding and reports things are going well. the patient has done well.? Vitals have been stable.? She has remained afebrile.? Has a good appetite, is tolerating a general diet. ?She is voiding without difficulty.? She is passing gas and has not had a bowel movement. She is feeling very constipated and has been using colace and miralax.? She is ambulating and denies any dizziness.? Has small amount of rubra lochia. Problems: Constipation plan: Discharge home with baby. Follow up in 2 weeks and 6 weeks. , may see if needed Constipation. Continue with colace and miralax. Pt requests suppository for use as needed. Peripartum Data delivery method: Vaginal Laceration description: Perineal - 2nd Degree complications: none Infant Gender: Female Infant Discharge Plan: Home Status at Discharge Functional status at discharge: independent ambulation Overall status at discharge: patient is progressing back to baseline Time Spent with Patient Time attestation: Total time spent providing and/or coordinating discharge services: Discharge Plan Discharge Disposition: Home, Self-Care Date of Admission: 07/03/23 17:00 Attending Provider on Discharge: Zee Phelan Primary Care Provider: Provider,Not a Local Condition: Stable Anticipated Discharge Date/Time: 07/06/23 12:00 Discharge Medications: New docusate sodium 100 mg Capsule 100 mg PO BID Qty: 90 0RF ibuprofen 600 mg Tablet 600 mg PO Q6H PRNQty: 60 0RF bisacodyl 10 mg suppository [address] DAILY PRN (Reason: constipation) Qty: 5 0RF acetaminophen 500 mg Tablet 1,000 mg PO Q6H PRN (Reason: pain/fever) Qty: 0 0RF Continued triamcinolone acetonide 0.1 % cream 1 applic topical BID Qty: 30 0RF DHA 200 mg capsule 1 mg PO QDAY hydroxyzine pamoate [Vistaril] 25 mg capsule 25 - 50 mg PO QHS Qty: 20 0RF Discharge Orders: Discharge Order (Routine); Ordered 07/06/23 Ordered By: Zee Phelan Patient Education: OB Over the Counter Medication Information, OB Vaginal/Breast Feeding Additional Instructions: Discharge instructions were reviewed with the patient including signs and symptoms of infection and home going medications Nothing vaginally for 6 weeks: no tampons or intercourse Off Work or School for 6 weeks 2-week visit: discuss feeding concerns, review control o ptions and screen for anxiety/depression. 6-week visit for an annual exam. consultation services are available to all mothers and babies for the first year after delivery.? To make an appointment, please call [phone]. Activity Level: Activity as Tolerated Discharge Diet: Regular Follow Up Appointments: Provider,Not a Local [Primary Care Provider] - Forms: eInst[employer] Info Instructions
[2023-07-06] MEDS: DOCUSATE SODIUM 100 MG CAPSULE PO ×2 (08:52)
[2023-07-06] MEDS: polyethylene glycoL 3350 17 GM PACK PO (08:52)
== END 2023-07-06 10:45 | disposition home or self-care (01) | DRG 807 ==
PROVIDERS: Admitting Provider Advanced Practice Midwife; Visit Provider Advanced Practice Midwife
DX: O70.1 Second degree perineal laceration during delivery (principal); Z37.0 Single live birth; Z3A.39 39 weeks gestation of pregnancy; L30.9 Dermatitis, unspecified; J45.909 Unspecified asthma, uncomplicated; Z86.59 Personal history of other mental and behavioral disorders; Z87.442 Personal history of urinary calculi
CPT/HCPCS: 59200; 86592; A9270; J2001; J2270

== ENCOUNTER 2024-11-21 17:24 | Emergency (ER) | payer OTHER, SELFPAY ==
--- OUTSIDE RECORDS SUMMARY | 2024-11-21 17:27 | XMS_ITS | Clinical Summary ---
Author Organization [facility] Address [address] [place] [id number] Care Team Providers Care Clamp Carrier Operator Name Role Phone Pcp, No Primary Care Provider Unavailabl e Clinic, No Pcp Or Unavailable Unavailable JessicaDoreen MEKHI Unavailable [phone] Allergies Active Allergy Reactions Criticality Noted Date Comments Cat Dander Runny Nose 09/29/2021 Asthma type symptoms Scratchy throat Medications acetaminophen (TYLENOL EXTRA STRGTH) 500 mg tabletIndicati ons:Right ureteral stone Take 2 Tablets (1,000 mg) by mouth every 6 hours. Max acetaminophen dose: 4000mg in 24 hrs. 20 Tablet 09/06/2021 6:26 PM CDT 2 Active vit/iron fum/folic ac ( 1 + 1 ORAL) Take by mouth. Activ e Active Problems Problem Noted Date Diagnosed Date Suspected anomaly not found 03/02/2023 [facility] Supervision of high-risk 3 Overview (02/28/2023): Juanitajia May : 1995 MPP ULTRASOUND/TESTING PATIENT MPP CONSULT ON Support person name: [employer] Charcoal Burner: No ULTRASOUND TYPE: L2 and GC REASON FOR VISIT: Abnormal findings on anatomy screen. ? Cavum septum pellucidum et vergae or potentially a cerebral ventricular dilation. NEXT VISIT ALERTS: NURSING VISIT ALERT: Create and link episode at day of visit. Document in Dating section. GA Final TEE by Early Ultrasound LMP Date: 07/03/22 TEE: Early US: Date: 11/27/22 GA: 7w6d TEE: 07/10/23 PrePregnancy Weight: 177# Height: 5ft4in BMI: 30.4 PLANS & FUTURE APPOINTMENTS: ULTRASOUND/GROWTH PLAN: - Through: L2 03/02/23 - Growth: Next TESTING PLAN: - Testing: Through DELIVERY PLAN: - Scheduled delivery: - Preferred delivery location: PRIMARY DIAGNOSIS: 27 y.o. Estimated Date of Delivery: ? Abnormal anatomy screen at primary clinic MATERNAL BMI-30 History of kidney stones last with stent placement X 2. (Known stone still present) Anxiety-no medication History of eating disorder Asthma X 1 41 weeks 7#-14 ozs PREVIOUS ULTRASOUNDS: L2 03/02/23 02/21/23 19w4d 320 gm 32% Abnormal anatomy screen (PCP) 07/09/22 7w6d TEE 07/10/23(PCP) ECHO: REFERRING PHYSICIAN/PHONE/LAST UPDATE: Doreen Lopez [facility] #[phone] Primary MD approves scheduling of recommended ultrasounds/testing: Yes SPECIALISTS/CONSULTS: Include: Specialty MD Clinic Name Phone# [place] and ADDED TO PATIENT CARE TEAM Not Applicable GENETICS: MPP appointment 03/02/23 Declines at primary CARE COORDINATION: PERTINENT LABS: Labs reviewed? Yes Normal? Yes Blood type: B Positive Antibody screen: Negative Non-[facility] labs need to be entered in EPIC? Yes PERTINENT MEDS: PROCEDURES: IF FGR <10% or EFW <2000 grams: Add FGRPCOM PLAN OF CARE: Original and updated POC Social History Tobacco Use Types Packs/Day Years Used Date Smoking Tobacco: Never Smokeless Tobacco: Never Alcohol Use Standard Drinks/Week Comments Not Currently 0 (1 standard drink = 0.6 oz pur e alcohol) Social Connections Answer Date Recorded Frequency of Communication with Friends and Fami ly Not on file 08/08/2022 Comments Unknown Sex and Gender Information Value Date Recorded Sex Assigned at Not on file Legal Sex Female 4:27 PM COLLEGE ADMINISTRATOR Gender Identity Not on file Sexual Orientation Not on file Obstetrics History Para Term AB IAB SAB Ectopic Multiple Livin g Live Births 2 1 1 0 0 0 0 0 1 1 Date Outcome GA Total Labor Labor/2nd/3rd Weight Sex Type Anes PTL Nayeli A1 A5 Name Clin 2021 Term 41w 0d 3.57 kg (7 lb 14 oz) Vag Living Last Filed Vital Signs Vital Sign Reading Time Taken Comments Blood Pressure 117/71 01/26/2022 11:06 PM CDT Pulse 102 01/26/2022 11:06 PM CDT Temperature 36.5 C (97.7 F) 01/26/2022 11:06 PM CDT Respiratory Rate 18 01/26/2022 11:06 PM CDT Oxygen Saturation 100% 09/30/2021 2:29 PM CDT Inhaled Oxygen Concentration - - Weight 85.3 kg (188 lb) 01/26/2022 11:06 PM CDT Height 162.6 cm (5' 4) 01/26/2022 11:06 PM CDT Body Mass Index 32.27 01/26/2022 11:06 PM CDT Plan of Treatment Health Maintenance Due Date Last Done Comments Tetanus booster 11/05/2007 Depression screening for age 12+ 2008 HIV for age 15-65 11/05/2011 BMI (ht and wt on same day) for age 18+ 2014 Hepatitis C screening for ag e 18-79 2014 Hepatitis B series for 19+ ( 1 of 3 - 19+ 3-dose series) 11/05/2015 COVID-19 vaccine series ( - 2023- season) 2023 Pap test for age 21-65 06/28/2024 06/28/2021 Influenza Vaccine (#1) 2024 Pneumococcal series for age 6-49 Aged Out No longer eligible based on patient's age to complete this topic Medical Devices Implanted Type Area Support Staff Device Identifier Shelf Expiration Date Model / Serial / Lot Stent Uret [id number] Percuflex [employer]plus - [id number] Implanted:Qty: 1 on 09/30/2021 by Mayank Pimentel MD at [facility] Right: Ureter [facility] 01/12/2023 [id number] / / [id number] Explanted Type Area Support Staff Device Identifier Shelf Expiration Date Model / Serial / Lot Stent Uret [id number] Percuflex Hydroplus - [id number] Implanted:Qty: 1 on 09/06/2021 by Mayank Pimentel MD at [facility] Explanted:Qty: 1 on 09/30/2021 by Mayank Pimentel MD at [facility] Right: Ureter [facility] 06/06/2024 [id number] / / [id number] Procedures Procedure Name Priority Date/Time Associated Diagnosis Comments ENVIRONMENTAL HEALTH SAFETY ENGINEER THIN PREP PAP SCREEN IMAGED Routine 06/28/2021 10:50 AM COLLEGE ADMINISTRATOR from Last 3 Months or Most Recently Relevant to Health Maintenance Results * ENVIRONMENTAL HEALTH SAFETY ENGINEER THIN PREP PAP SCREEN IMAGED (06/28/2021 10:50 AM COLLEGE ADMINISTRATOR) Case Report Gynecologic Cytology Report Case: [id number] Authorizing Provider: Urvashi Hallman CNM Collected: 06/28/2021 1050 Ordering Location: [facility] Received: 06/28/2021 1648 First Screen: Miriam Jimenez Specimen: ENVIRONMENTAL HEALTH SAFETY ENGINEER ThinPrep Vial Screening, Cervical/Vaginal 07/06/2021 5:53 PM COLLEGE ADMINISTRATOR [facility]- EN[facility]AL [facility] INTERPRETATION/ RESULT NEGATIVE FOR INTRAEPITHELIAL LESION OR MALIGNANCY (NIL) (none) 07/06/2021 5:53 PM COLLEGE ADMINISTRATOR [facility] EN[facility] at 1753 COLLEGE ADMINISTRATOR SPECIMEN ADEQUACY Satisfactory for evaluation Endocervical component present 07/06/2021 5:53 PM COLLEGE ADMINISTRATOR [facility] HPV REQUEST HPV if ASCUS 07/06/2021 5:53 PM COLLEGE ADMINISTRATOR [facility]-C ENTRAL LABORATORY Date of LMP 05/03/2021 07/06/2021 5:53 PM COLLEGE ADMINISTRATOR [facility] [employer] [facility] EN[facility] Comment:05/03/2021 Last Pap Result First Pap/Unknown 5:53 PM COLLEGE ADMINISTRATOR [facility] ENTRAL LAB[facility] Menstrual Status 07/06/2021 5:53 PM COLLEGE ADMINISTRATOR [facility] Additional Information 07/06/2021 5:53 PM COLLEGE ADMINISTRATOR [facility] Comment: Interpreted at [facility], Central Laboratory - [address], [place] [address] Automated Review Successful 07/06/2021 5:53 PM COLLEGE ADMINISTRATOR [facility] ENTRAL [facility] Comment:Specimen processed s uccessfully by automated reservations specialist device, ThinPrep Imaging System, [employer] Note The pap test is a screening technique, not a diagnostic procedure. It is used primarily to screen for squamous cancers and precursor lesions. Published studies have shown that it is subject to both false negative and false positive results. The pap test should not be used as the sole means to diagnose or exclude pre-malignant and malignant lesions. 07/06/2021 5:53 PM COLLEGE ADMINISTRATOR [facility]- ENTRAL LABORATORY Other (Cervical/Vagina l) 06/28/2021 10:50 AM COLLEGE ADMINISTRATOR 06/28/2021 4:48 PM COLLEGE ADMINISTRATOR Urvashi Hallman CN PATHOLOGY/CYTOLOGY Final Re sult [facility] [address] [place] [address], from Last 3 Months or Most Recently Relevant to Health Maintenance Insurance [employer] [facility] Advance Directives * Full Code (Latest Code Status on File) Date Activated Date Inactivated Comments 09/30/2021 10:04 AM 09/30/2021 5:35 PM Should be dis cussed pre operatively with anesthesia or surgeon Question Answer Comments Code Status Discussion: Not Discussed * Full Code Date Activated Date Inactivated Comments 09/06/2021 3:13 PM 09/06/2021 9:21 PM Should be di scussed pre operatively with anesthesia or surgeon Question Answer Comments Code Status Discussion: Not Discussed Care Teams Clamp Carrier Operator Relationship Specialty Start Date End Date Pcp, No . PCP - General 09/06/21 Clinic, No Pcp Or . 09/06/21 Doreen Lopez CNM [address] [place] [id number] Referring Provider Certified Nurse Precision Structural Metal Fitter 02/26/23
[2024-11-21 17:41] VITALS: BP 116/81; PULSE 99; RESP 18; TEMP 36.7; O2SAT 98; BMI 29.6
--- NOTE | 2024-11-21 17:44 | CRLHL7_ITS ---
For Patients: As a result of the Century Cures Act, medical imaging exams and procedure reports are released immediately into your electronic medical record. You may view this report before your referring provider. If you have questions, please contact your health care provider. INDICATION: Right calf pain. TECHNIQUE: Ultrasound venous duplex lower right extremity. Compression venous exam was performed using harrison-scale, color Doppler, and spectral Doppler analysis. COMPARISON: None. FINDINGS: Deep veins: Sonographic imaging demonstrates the right common femoral, deep femoral, superficial femoral, popliteal, posterior tibial and the contralateral left common femoral veins to be fully compressible with normal color Doppler blood flow. Superficial veins: Greater saphenous vein is fully compressible. IMPRESSION: No sign of deep venous thrombosis in the right lower extremity. Dictated by Pavel Murguia MD @ 11/21/2024 6:39:24 PM (Electronically Signed)
--- NOTE | 2024-11-21 17:44 | ED_ITS ---
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 She has had calf pain recently. No specific injury but she notes she has a very active lifestyle. She runs and exercises also is the mother for 2 young children. She has been having pain on the right posterior lateral calf radiating from the gastroc down to the right Achilles for the past few days. No swelling. No bruising. She has no recent travel or long immobilization. No history of DVT or PE. She has not noticed any bruising or redness or discoloration of her calf. No rash. No ankle or foot pain. Related Data Previous Rx's ?Medication ?Instructions ?Recorded acetaminophen 500 mg tablet 1,000 mg (2 x 500 mg) PO Q 6H PRN 07/06/23 pain/fever #0 tabs docusate sodium 100 mg capsule 100 mg PO BID #90 caps 07/06/23 Allergies Allergy/AdvReac Type Severity Reaction Status Date / Time cat dander Allergy Verified 11/21/24 17:41 [facility] Medical History (normal spontaneous vaginal delivery) ?O80 - Encounter for full-term uncomplicated delivery (ICD-10) Asthma ?J45.909 - Unspecified asthma, uncomplicated (ICD-10) Calculus of kidney ?N20.0 - Calculus of kidney (ICD-10) History of eating disorder ?Z86.59 - Personal history of other mental and behavioral disorders (ICD-10) Surgical History Status post cystoscopy with ureteral stent placement ?Z96.0 - Presence of urogenital implants (ICD-10) [place] teeth extracted ?K08.409 - Partial loss of teeth, unspecified cause, unspecified class (ICD- 10) Family History Mother Thyroid disease Maternal Grandmother Thyroid disease Paternal Grandmother Cancer Social History Narrative: SOCIAL Education: Bachelors Work: center RN Partner: Yovani Lives with: and child Pets: none Abuse: Denies past/present Special Diet: Denies Ok with a blood transfusion: yes Culture or confucianism beliefs: denies RISK FACTORS Exercise Times/wk: walking 3-4 days per week Depression/Anxiety: anxiety, denies therapy at this time. Feels that she has some coping techniques and good support. Knows to reach out with concerns. JONNA: 4 PHQ 9: 1 Seat Belt Use: Routinely Smoking: Denies past/present Alcohol/day: Denies while Caffeine: none Drug Use: Denies past/present Chicken Pox: vaccine MRSA: Denies What is your current living situation?: I presently have a place to live Problems where you live: no known problems In the past 12 months, utilities in danger of being shut off: no In past 12 months, lack of transportation kept you from medical appts, meetings, work, or getting things needed for daily living: no In the past 12 mos, have been you worried that your food would run out before you had money to buy more?: never true In the past 12 mos, the food you bought just didn't last and you didn't have money to buy more?: never true Smoking Status: Never smoker Non-prescribed substance use: denies use How often does anyone, including family, friends and others, physically hurt you : never How often does anyone, including family, friends and others, insult or talk down to you: never How often does anyone, including family, friends and others, threaten you with harm: never How often does anyone, including family, friends and others, scream or curse at you: never Exam Narrative: Exam Narrative: Constitutional: Appears well-developed and well-nourished. Active. Non-toxic appearing. Very polite. HENT: Head: Atraumatic. No signs of injury. Nose: No nasal discharge. Mouth/Throat: Mucous membranes are moist. No trismus Eyes: Conjunctivae normal and EOM are normal. Pupils are equal, round, and reactive to light. Right eye exhibits no discharge. Left eye exhibits no discharge. No icterus. Neck: Normal range of motion. Neck supple. No adenopathy. No stridor. Cardiovascular: Normal rate and regular rhythm. Normal capillary refill and strong PT artery pulse. Pulmonary/Chest: Effort normal. No stridor. No respiratory distress. Musculoskeletal: Normal except for right lower extremity- Normal range of motion. No edema. No tenderness. No deformity. Right lower extremity: Femur and thigh are nontender. Normal range of motion in the knee. Normal inspection of the as a-corey and calf. No palpable swelling or palpable cord. No bruising. No redness. Mild tenderness on the posterolateral calf. Tenderness is increased dorsiflexing the ankle by upward pressure on the sole of the foot stretching of the posterior calf due to plantar flexion. She is able to plantar flex with only minimal pain. Neurological: Alert. Normal strength. No cranial nerve deficit or sensory deficit. Coordination normal. GCS eye subscore is 4. GCS verbal subscore is 5. GCS motor subscore is 6. Skin: Skin is warm. No rash noted. Const: Vital Signs, click to edit/add: Vital Signs - 24 hr 11/21/24 17:41 Temperature 98.1 F Pulse Rate [Pulse Oximeter] 99 Respiratory Rate 18 Blood Pressure [Ri ght Upper Arm] 116/81 Pulse Oximetry 98 Oxygen Delivery Me thod Room Air Course Vital Signs Vital signs: Initial Vital Signs Temperature 98.1 F 11/21/24 17:41 Temperature Source Temporal Artery Scan 11/21/24 17:41 Pulse Rate 99 11/21/24 17:41 Respiratory Rate 18 11/21/24 17:41 Blood Pressure 116/81 11/21/24 17:41 Blood Pressure Mean 92 11/21/24 17:41 Pulse Oximetry 98 11/21/24 17:41 Oxygen Delivery Method Room Air 11/21/24 17:41 Vital Signs Temperature 98.1 F 11/21/24 17:41 Pulse Rate 99 11/21/24 17:41 Respiratory Rate 18 11/21/24 17:41 Blood Pressure 116/81 11/21/24 17:41 Pulse Oximetry 98 11/21/24 17:41 Oxygen Delivery Method Room Air 11/21/24 17:41 Temperature 98.1 F 11/21/24 17:41 Pulse Rate 99 11/21/24 17:41 Respiratory Rate 18 11/21/24 17:41 Blood Pressure 116/81 11/21/24 17:41 Pulse Oximetry 98 11/21/24 17:41 Oxygen Delivery Method Room Air 11/21/24 17:41 Medical Decision Making MDM Narrative Medical decision making narrative: 29-year-old female presenting to the ER today with atraumatic right calf pain for the past few days. She is concerned about possible DVT or PE. Venous ultrasound is obtained and is fortunately normal. She has no significant risk factors for DVT or PE. Discussed that sensitivity of the ultrasound is high, but not 100%. Would recommend return to the ER for repeat ultrasound if she had any worsening swelling or pain develops. Otherwise if not dramatically improved within 7 days, have follow-up ultrasound. Patient suspects that this may be a calf strain from running. No other known injury. She does not think is anything broken. She is comfortable with the plan for monitoring in the outpatient basis and was reassured by her normal ultrasound. She verbalizes her understanding of return precautions and follow-up. Imaging Data US Venous Right Lower Extremity: Attestation: I have reviewed the pertinent imaging results. Radiologist's impression: FINDINGS: Deep veins: Sonographic imaging demonstrates the right common femoral, deep femoral, superficial femoral, popliteal, posterior tibial and the contralateral left common femoral veins to be fully compressible with normal color Doppler blood flow. Superficial veins: Greater saphenous vein is fully compressible. IMPRESSION: No sign of deep venous thrombosis in the right lower extremity. Discharge Plan Discharge Clinical Impression: Pain of right calf Patient Disposition: Home, Self-Care Condition: Stable Instructions: Leg Pain (ED) Additional Instructions: As we discussed, your ultrasound looks good. No signs of blood clot today. For now it is okay to manage her calf pain with rest, elevation as needed, Tylenol or ibuprofen. If you have worsening pain or swelling, or if you have any chest pain or trouble breathing, please come back to the ER right away. If your pain is not dramatically improved within 7 days, please follow-up with her doctor or return to the ER for a repeat ultrasound. Prescriptions: No Action acetaminophen 500 mg Tablet 1,000 mg PO Q6H PRN (Reason: pain/fever) Qty: 0 0RF docusate sodium 100 mg Capsule 100 mg PO BID Qty: 90 0RF Follow Up/Referrals: Provider,Not a Local [Primary Care Provider, Family Practice] Stand Alone Forms: [employer] Info Instructions
== END 2024-11-21 19:21 | disposition home or self-care (01) ==
PROVIDERS: Emergency Provider Emergency Medicine
DX: M79.661 Pain in right lower leg (principal)
CPT/HCPCS: 93971; 99282; 99283